=== PATIENT | male | born 1980 | race Two or more races ===

== ENCOUNTER 2023-08-11 16:25 | Emergency (ER) | payer OTHER ==
[~2023-08-11] VITALS: Ht 180.3 cm; Wt 166.4 kg
[2023-08-11 16:33] VITALS: TEMP 98.4
[2023-08-11 20:25] VITALS: BP 145/103; PULSE 101; RESP 19
[2023-08-11] MEDS ORDERED: IBUP-1492 PO (20:40)
[2023-08-11] MEDS ORDERED: IBUPROFEN 600 MG TABLET PO ONE (20:45)
== END 2023-08-11 20:52 | disposition home or self-care (01) ==
LOC: EMS 16:27
DX: S40.012A Contusion of left shoulder, initial encounter (principal); W01.0XXA Fall on same level from slipping, tripping and stumbling without subsequent striking against object, initial encounter; Y93.89 Activity, other specified; Y92.89 Other specified places as the place of occurrence of the external cause; Y99.8 Other external cause status
CPT/HCPCS: 99283